=== PATIENT | female | born 1955 | race African-American/Black ===

== ENCOUNTER 2024-07-11 10:16 | Emergency (ER) | payer OTHER ==
--- OUTSIDE RECORDS SUMMARY | 2024-07-11 10:19 | XMS REPORT | Continuity of Care Document ---
Author Name Unknown Address [address] [facility] [address] [place] [address] [facility] thconnect Address [address] [facility] [address] [place] [address] Care Team Providers Care Pipeline Executive Name Role Phone [phone] Primary Care Physician Unavailab le Payers Payer Name Policy Type Policy Number Effective Date Expirati on Date Source MEDICARE PART A AND B [id number] 2012 00:00:00 [place]ICAID [place] [employer] SSI [id number] 2013 00:00:00 2015 00:00:00 Allergies, Adverse Reactions, Alerts Allergy Name Allergy Type Status Severity Reaction(s) Onset Date Inactive Date Treating Clinician Comments Source none (Not Checked) Propensi ty to adverse reaction to drug Active 06-06 00:00: 00 Justus Bell Medications Ordered Medication Name Filled Medication Name Start Date Stop Date Current Medication? Ordering Clinician Indication Dosage Frequency Signature (SIG) Comments Components Source amlodipine 10 mg tablet 07-05 00:00: 00 Yes 1mg Justus Bell lisinopril 40 mg tablet 06-06 00:00: 00 Yes 1mg Justus Bell albuterol sulfate HFA 90 mcg/actuati on aerosol inhaler 06-06 00:00: 00 Yes 1mcg/ac tuation Justus Bell atorvastati n 10 mg tablet 06-06 00:00: 00 Yes 1mg Justus Bell Mucinex DM 30 mg-600 mg tablet,exte nded release 12 hr 3-27 00:00: 00 Yes 1mg Justus Bell AZITHROMYCI N 250 MG TABS 01-24 00:00: 00 Yes Justus Bell TAKE 1 TABLET DAILY. 2022-10 2-15 00:00: 00 Yes 10 Justus Bell TAKE 1 TABLET BY MOUTH EVERY 6 TO 8 HOURS NEEDED FOR PAIN 2022-10-08 00:00: 00 Yes Justus Bell AMOXICILLIN 500 MG 2022-10 1-08 00:00: 00 Yes Justus Bell USE DIRECTED 2022-10 0-02 00:00: 00 Yes Justus Bell RINSE WITH 15 ML BY MOUTH TWICE DAILY FOR 45 SECONDS, DO NOT SWALLOW OR EAT FOR UP TO 1 HOUR 9-06 00:00: 00 Yes Justus Bell IBUPROFEN 800 MG TABS 8-16 00:00: 00 Yes Justus Bell AMOXICILLIN 500 MG 8-16 00:00: 00 Yes Justus Bell AMOXICILLIN 500 MG 8-10 00:00: 00 Yes Justus Bell IBUPROFEN 800 MG TABS 8-10 00:00: 00 Yes Justus Bell SWISH AND SWALLOW 5ML 4 TIMES DAILY. -09 00:00: 00 03-08 00:00 :00 No [id number] Justus Bell PUT ALL OVER BODY AFTER BATH 01-28 00:00: 00 Yes Justus Bell NYSTATIN [id number] UNIT/GM CREA 01-28 00:00: 00 Yes Justus Bell FLUTICASONE PROPIONATE 50 MCG/ACT SUSP 01-28 00:00: 00 Yes Justus Bell TAKE 1 TABLET BY MOUTH EVERY DAY IN THE EVENING 01-28 00:00: 00 Yes Justus Bell INHALE 2 PUFFS BY MOUTH TWICE A DAY *RINSE MOUTH AFTER EACH USE* 01-28 00:00: 00 Yes Justus Bell INHALE 1 PUFF BY MOUTH EVERY 4 HOURS 01-28 00:00: 00 Yes Justus Bell TAKE 1 TABLET BY MOUTH EVERY DAY WITH FOOD 01-28 00:00: 00 Yes Justus Bell FAMOTIDINE 20 MG TABS -31 00:00: 00 Yes Justus Bell TAKE 1 TABLET BY MOUTH TWICE A DAY 2-14 00:00: 00 Yes Justus Bell Vital Signs Vital Name Observation Time Observation Value Comments S annmarie BP Systolic 2024-06-06 10:24:00 136 mm[Hg] Step hen F Ray BP Diastolic 2024-06-06 10:24:00 78 mm[Hg] [place] phen F Ray Weight Measured 2024-06-06 10:24:00 218.00 pounds Justus F Ray Height Measured 2024-06-06 10:24:00 63.00 inches Justus F Ray Body Temperature 2024-06-06 10:24:00 97.80 degrees Justus F Ray Heart Rate 2024-06-06 10:24:00 66.00 /min Aida en F Ray Respiratory Rate 2024-06-06 10:24:00 18.00 /min Justus F Ray BP Systolic 2024-01-23 10:06:00 132 mm[Hg] Step hen F Ray BP Diastolic 2024-01-23 10:06:00 84 mm[Hg] [place] phen F Ray Weight Measured 2024-01-23 10:06:00 207.00 pounds Justus F Ray Height Measured 2024-01-23 10:06:00 63.00 inches Justus F Ray Body Temperature 2024-01-23 10:06:00 98.10 degrees Justus F Ray Heart Rate 2024-01-23 10:06:00 95.00 /min Aida en F Ray Respiratory Rate 2024-01-23 10:06:00 16.00 /min Justus F Ray Height Measured 2023-10-04 11:11:00 63.00 inches Justus F Ray Body Temperature 2023-10-04 11:11:00 97.90 degrees Justus F Ray Heart Rate 2023-10-04 11:11:00 80.00 /min Aida en F Ray Respiratory Rate 2023-10-04 11:11:00 20.00 /min Justus F Ray BP Systolic 2023-10-04 11:11:00 140 mm[Hg] Step hen F Ray BP Diastolic 2023-10-04 11:11:00 90 mm[Hg] [place] phen F Ray Weight Measured 2023-10-04 11:11:00 211.00 pounds Justus F Ray BP Systolic 2023-10-04 10:11:00 140 mm[Hg] Step hen F Ray BP Diastolic 2023-10-04 10:11:00 90 mm[Hg] [place] phen F Ray Weight Measured 2023-10-04 10:11:00 211.00 pounds Justus F Ray Height Measured 2023-10-04 10:11:00 63.00 inches Justus F Ray Body Temperature 2023-10-04 10:11:00 97.90 degrees Justus F Ray Heart Rate 2023-10-04 10:11:00 80.00 /min Aida en F Ray Respiratory Rate 2023-10-04 10:11:00 20.00 /min Justus F Ray BP Systolic 2023-08-17 10:23:00 132 mm[Hg] Step hen F Ray BP Diastolic 2023-08-17 10:23:00 80 mm[Hg] [place] phen F Ray Weight Measured 2023-08-17 10:23:00 206.00 pounds Justus F Ray Height Measured 2023-08-17 10:23:00 63.00 inches Justus F Ray Body Temperature 2023-08-17 10:23:00 98.20 degrees Justus F Ray Heart Rate 2023-08-17 10:23:00 83.00 /min Aida en F Ray Respiratory Rate 2023-08-17 10:23:00 20.00 /min Justus F Ray BP Systolic 2023-05-18 13:15:00 160 mm[Hg] Step hen F Ray BP Diastolic 2023-05-18 13:15:00 76 mm[Hg] [place] phen F Ray Weight Measured 2023-05-18 13:15:00 203.00 pounds Justus F Ray Height Measured 2023-05-18 13:15:00 63.00 inches Justus F Ray Body Temperature 2023-05-18 13:15:00 97.20 degrees Justus F Ray Heart Rate 2023-05-18 13:15:00 77.00 /min Aida en F Ray Respiratory Rate 2023-05-18 13:15:00 20.00 /min Justus F Ray BP Systolic 2023-03-08 13:33:00 138 mm[Hg] Step hen F Ray BP Diastolic 2023-03-08 13:33:00 70 mm[Hg] [place] phen F Ray Weight Measured 2023-03-08 13:33:00 200.00 pounds Justus F Ray Height Measured 2023-03-08 13:33:00 63.00 inches Justus Bell Body Temperature 2023-03-08 13:33:00 97.00 degrees Justus Bell Heart Rate 2023-03-08 13:33:00 80.00 /min Aida Bell Respiratory Rate 2023-03-08 13:33:00 20.00 /min Justus Bell Encounters Start Date/Time End Date/Time Encounter Type Admission Type Attending [facility] Care Department Encounter ID Source 2022-03-26 12:09:00 Outpatient STLMLC STLMLC [id number] [facility] 2021-12-03 18:08:53 Outpatient MDA MDA [id number] MD Real colbert 2021-11-25 14:33:53 Outpatient STLMLC STLC [id number] [facility] 2024-07-09 08:42:15 2024-07-09 08:42:15 Outpatient SFA SFA [id number] Justus Bell 2024-07-05 00:00:00 2024-07-05 00:00:00 Outpatient Visit SFA [id number] Justus Bell 2024-06-18 10:16:50 2024-06-18 10:16:50 Outpatient SFA SFA [id number] Justus Bell 2024-06-15 12:58:48 2024-06-15 12:58:48 Outpatient SFA SFA [id number] Justus Bell 2024-06-12 09:38:21 2024-06-12 09:38:21 Outpatient SFA SFA [id number] Justus Bell 2024-06-12 00:00:00 2024-06-12 00:00:00 Outpatient Visit SFA SFA [id number] Justus Bell 2024-06-06 10:23:36 2024-06-06 10:23:36 Outpatient SFA SFA [id number] Jutsus Bell 2024-06-06 00:00:00 2024-06-06 00:00:00 Outpatient Visit [facility] [id number] Justus Bell 2024-01-23 10:05:40 2024-01-23 10:05:40 Outpatient SFA [facility] [id number] Justus Bell 2023-10-05 17:17:36 2023-10-05 17:17:36 Outpatient SFA [facility] [id number] Justus Bell 2023-10-04 09:57:43 2023-10-04 09:57:43 Outpatient SFA [facility] [id number] Justus Bell 2023-08-17 10:23:34 2023-08-17 10:23:34 Outpatient SFA [facility] [id number] Justus Bell 2023-05-18 13:05:05 2023-05-18 13:05:05 Outpatient SFA [facility] [id number] Justus Bell Results Test Description Test Time Test Comments Results Result Co mments Source Justus BellLIPID [id number] 00:00:00* Test Item Value Reference Range Interpretation Comme nts CHOLESTEROL (test code = 2210) 214 MG/DL TRIGLYCERIDES (test code = 2232) 137 MG/DL HDL CHOLESTEROL (test code = 2220) 50 MG/DL CALC LDL CHOL (test code = 2237) 138 MG/DL RISK RATIO LDL/HDL (test cod e = 2238) 2.76 RATIO Justus [id number] 00:00:00* Test Item Value Reference Range Interpretation Comme nts TSH, THIRD GENERATION (test code = 2821) 1.110 UIU/ML Justus BellCOMPREHENSIVE METABOLIC [id number] 00:00:00* Test Item Value Reference Range Interpretation Comme nts GLUCOSE (test code = 2217) 90 MG/DL BUN (test code = 2208) 15 MG/DL CREATININE (test code = 2214) 0.97 MG/DL eGFR (2020 CKD-EPI) (test co de = 70694) 64 ML/MIN/1.73 CALC BUN/CREAT (test code = 2235) 15 RATIO SODIUM (test code = 2231) 142 MEQ/L POTASSIUM (test code = 2228) 4.3 MEQ/L CHLORIDE (test code = 2215) 106 MEQ/L CARBON DIOXIDE (test code = 2206) 24 MEQ/L CALCIUM (test code = 2209) 9.5 MG/DL PROTEIN, TOTAL (test code = 2229) 7.5 G/DL ALBUMIN (test code = 2201) 4.1 G/DL CALC GLOBULIN (test code = 2240) 3.4 G/DL CALC A/G RATIO (test code = 2234) 1.2 RATIO BILIRUBIN, TOTAL (test code = 2207) 0.7 MG/DL ALKALINE PHOSPHATASE (test code = 2204) 134 U/L AST (test code = 2218) 21 U/L ALT (test code = 2219) 11 U/L Justus BellHEPATITIS C [id number] 00:00:00* Test Item Value Reference Range Interpretation Comme nts HEPATITIS C ANTIBODY (test c ode = 4675) NON-REACTIVE Justus Bell8 [ADDED]2023-10-13 00:00:00* Test Item Value Reference Range Interpretation Comme nts NO URINE PROVIDED: (test code = 986) (NOTE) Justus BellCBC W/AUTO [id number] 00:00:00* Test Item Value Reference Range Interpretation Comme nts WBC (test code = 1001) 7.7 K/UL RBC (test code = 1002) 4.73 M/UL HEMOGLOBIN (test code = 1003) 14.3 G/DL HEMATOCRIT (test code = 1004) 42.7 % MCV (test code = 1005) 90.3 fL MCH (test code = 1006) 30.2 PG MCHC (test code = 1007) 33.5 G/DL RDW (test code = 1038) 13.1 % NEUTROPHILS (test code = 1008) 41.4 % LYMPHOCYTES (test code = 1010) 49.4 % MONOCYTES (test code = 1011) 6.2 % EOSINOPHILS (test code = 1012) 1.9 % BASOPHILS (test code = 1013) 0.8 % IMMATURE GRANULOCYTES (test code = 1036) 0.3 % NUCLEATED RBCS (test code = 1065) 0.0 /100WBC'S PLATELET COUNT (test code = 1015) 179 K/UL ABSOLUTE NEUTROPHILS (test c ode = 1066) 3.19 K/UL ABSOLUTE LYMPHOCYTES (test c ode = 1067) 3.80 K/UL ABSOLUTE MONOCYTES (test cod e = 1068) 0.48 K/UL ABSOLUTE EOSINOPHILS (test c ode = 1040) 0.15 K/UL ABSOLUTE BASOPHILS (test cod e = 1069) 0.06 K/UL ABS IMMATURE GRANULOCYTES (t est code = 1020) 0.02 K/UL ABS NUCLEATED RBCS (test cod e = 90603) 0.00 K/UL Justus BellLIPID [id number] 00:00:00* Test Item Value Reference Range Interpretation Comme nts CHOLESTEROL (test code = 2210) 214 MG/DL TRIGLYCERIDES (test code = 2232) 137 MG/DL HDL CHOLESTEROL (test code = 2220) 50 MG/DL CALC LDL CHOL (test code = 2237) 138 MG/DL RISK RATIO LDL/HDL (test cod e = 2238) 2.76 RATIO Justus [id number] 00:00:00* Test Item Value Reference Range Interpretation Comme nts TSH, THIRD GENERATION (test code = 2821) 1.110 UIU/ML Justus BellCOMPREHENSIVE METABOLIC [id number] 00:00:00* Test Item Value Reference Range Interpretation Comme nts GLUCOSE (test code = 2217) 90 MG/DL BUN (test code = 2208) 15 MG/DL CREATININE (test code = 2214) 0.97 MG/DL eGFR (2020 CKD-EPI) (test co de = 56484) 64 ML/MIN/1.73 CALC BUN/CREAT (test code = 2235) 15 RATIO SODIUM (test code = 2231) 142 MEQ/L POTASSIUM (test code = 2228) 4.3 MEQ/L CHLORIDE (test code = 2215) 106 MEQ/L CARBON DIOXIDE (test code = 2206) 24 MEQ/L CALCIUM (test code = 2209) 9.5 MG/DL PROTEIN, TOTAL (test code = 2229) 7.5 G/DL ALBUMIN (test code = 2201) 4.1 G/DL CALC GLOBULIN (test code = 2240) 3.4 G/DL CALC A/G RATIO (test code = 2234) 1.2 RATIO BILIRUBIN, TOTAL (test code = 2207) 0.7 MG/DL ALKALINE PHOSPHATASE (test code = 2204) 134 U/L AST (test code = 2218) 21 U/L ALT (test code = 2219) 11 U/L Justus BellHEPATITIS C [id number] 00:00:00* Test Item Value Reference Range Interpretation Comme nts HEPATITIS C ANTIBODY (test c ode = 4675) NON-REACTIVE Justus Bell8 [ADDED]2023-10-13 00:00:00* Test Item Value Reference Range Interpretation Comme nts NO URINE PROVIDED: (test code = 986) (NOTE) Justus BellCBC W/AUTO [id number] 00:00:00* Test Item Value Reference Range Interpretation Comme nts WBC (test code = 1001) 7.7 K/UL RBC (test code = 1002) 4.73 M/UL HEMOGLOBIN (test code = 1003) 14.3 G/DL HEMATOCRIT (test code = 1004) 42.7 % MCV (test code = 1005) 90.3 fL MCH (test code = 1006) 30.2 PG MCHC (test code = 1007) 33.5 G/DL RDW (test code = 1038) 13.1 % NEUTROPHILS (test code = 1008) 41.4 % LYMPHOCYTES (test code = 1010) 49.4 % MONOCYTES (test code = 1011) 6.2 % EOSINOPHILS (test code = 1012) 1.9 % BASOPHILS (test code = 1013) 0.8 % IMMATURE GRANULOCYTES (test code = 1036) 0.3 % NUCLEATED RBCS (test code = 1065) 0.0 /100WBC'S PLATELET COUNT (test code = 1015) 179 K/UL ABSOLUTE NEUTROPHILS (test c ode = 1066) 3.19 K/UL ABSOLUTE LYMPHOCYTES (test c ode = 1067) 3.80 K/UL ABSOLUTE MONOCYTES (test cod e = 1068) 0.48 K/UL ABSOLUTE EOSINOPHILS (test c ode = 1040) 0.15 K/UL ABSOLUTE BASOPHILS (test cod e = 1069) 0.06 K/UL ABS IMMATURE GRANULOCYTES (t est code = 1020) 0.02 K/UL ABS NUCLEATED RBCS (test cod e = 72202) 0.00 K/UL Justus BellLIPID [id number] 00:00:00* Test Item Value Reference Range Interpretation Comme nts CHOLESTEROL (test code = 2210) 214 MG/DL TRIGLYCERIDES (test code = 2232) 137 MG/DL HDL CHOLESTEROL (test code = 2220) 50 MG/DL CALC LDL CHOL (test code = 2237) 138 MG/DL RISK RATIO LDL/HDL (test cod e = 2238) 2.76 RATIO Justus [id number] 00:00:00* Test Item Value Reference Range Interpretation Comme nts TSH, THIRD GENERATION (test code = 2821) 1.110 UIU/ML Justus BellCOMPREHENSIVE METABOLIC [id number] 00:00:00* Test Item Value Reference Range Interpretation Comme nts GLUCOSE (test code = 2217) 90 MG/DL BUN (test code = 2208) 15 MG/DL CREATININE (test code = 2214) 0.97 MG/DL eGFR (2020 CKD-EPI) (test co de = 21699) 64 ML/MIN/1.73 CALC BUN/CREAT (test code = 2235) 15 RATIO SODIUM (test code = 2231) 142 MEQ/L POTASSIUM (test code = 2228) 4.3 MEQ/L CHLORIDE (test code = 2215) 106 MEQ/L CARBON DIOXIDE (test code = 2206) 24 MEQ/L CALCIUM (test code = 2209) 9.5 MG/DL PROTEIN, TOTAL (test code = 2229) 7.5 G/DL ALBUMIN (test code = 2201) 4.1 G/DL CALC GLOBULIN (test code = 2240) 3.4 G/DL CALC A/G RATIO (test code = 2234) 1.2 RATIO BILIRUBIN, TOTAL (test code = 2207) 0.7 MG/DL ALKALINE PHOSPHATASE (test code = 2204) 134 U/L AST (test code = 2218) 21 U/L ALT (test code = 2219) 11 U/L Justus BellHEPATITIS C [id number] 00:00:00* Test Item Value Reference Range Interpretation Comme nts HEPATITIS C ANTIBODY (test c ode = 4675) NON-REACTIVE Justus Little [ADDED]2023-10-13 00:00:00* Test Item Value Reference Range Interpretation Comme nts NO URINE PROVIDED: (test code = 986) (NOTE) Justus Bell Notes Date/Time Note Provider Source [facility]2024-08-13 00:00:00 [facility]2024-08-07 00:00:00 Justus Koenig [facility]
--- NOTE | 2024-07-11 10:53 | RAD REPORT ---
EXAM DESCRIPTION: RAD - Chest Single View - 07/11/2024 10:46 am CLINICAL HISTORY: COUGH Chest pain. COMPARISON: Chest Pa And Lat (2 Views) dated 09/26/2019; CHEST PA AND LAT 2 VIEW dated 02/11/2014; CH EST SINGLE VIEW dated 01/30/2014; CHEST SINGLE VIEW dated 01/29/2014 FINDINGS: Portable technique limits examination quality. The lungs are grossly clear. Mild elevation left hemidiaphragm noted. Significant fullness is seen in the right hilar region this is nonspecific but may indicate a mass or prominent vasculature. CT woul d be recommended. The heart is upper limit normal in size.Surgical clips seen in the left axillary re gion. IMPRESSION: Soft tissue lesion is identified in the right hilum which could be mass or prominent ves tj. Recommend CT chest for further evaluation.
[2024-07-11 11:57] LABS: Absolute Basophils 0.1 K/uL (0-0.5); Absolute Eosinophils 0.2 K/uL (0-0.5); Absolute Lymphocytes (CBC) 2.6 K/uL (0.7-4.9); Absolute Monocytes 0.6 K/uL (0.1-1.3); Absolute Neutrophil 4.1 K/uL (1.8-8.0); Basophils % 0.9 % (0-1.3); Hemoglobin 13.1 g/dL (12.0-15.0); Lymphocytes % 34.7 % (15.3-44.8); MCH 29.2 pg (27.0-35.0); MCHC 32.9 g/dL (32.0-36.0); MCV 88.8 fL (80-100); Monocytes % 7.4 % (3.3-12.3); Platelets 161 thou/uL (152-406); Red Cell Distribution Width 14.1 % (12.1-15.2)
[2024-07-11 12:03] LABS: PT Prothrombin Time 12.3 SECONDS (9.4-12.5); Protime INR 1.1
[2024-07-11 12:05] LABS: Albumin 3.4 g/dL (3.4-5.0); Albumin/Globulin Ratio 0.8 (1.1-1.8); Anion Gap 8.7 mEq/L (5.0-15.0); Bilirubin Direct 0.2 mg/dL (0-0.2); Bilirubin Indirect, Calculated 0.6 mg/dL (0.2-0.8); Bilirubin Total 0.8 mg/dL (0.2-1.0); Globulin 4.2 g/dL (2.3-3.5); Magnesium 1.9 mg/dL (1.6-2.4); Potassium 3.7 mEq/L (3.5-5.1); Protein, Total 7.6 g/dL (6.4-8.2); Troponin High Sensitivity 52.7 pg/mL (<58.9)
[2024-07-11] MEDS ORDERED: hydroCHLOROthiazide 25 MG TAB ONE (13:34)
[2024-07-11] MEDS ORDERED: ASPIRIN 81 MG CHEWABLE TABLET ONE (13:34)
[2024-07-11] MEDS ORDERED: AMLODIPINE 10 MG TAB ONE (13:34)
--- NOTE | 2024-07-11 13:45 | RAD REPORT ---
EXAM DESCRIPTION: CT - Thorax W/ Con - 07/11/2024 1:30 pm CLINICAL HISTORY: Lung mass COMPARISON: July 11, 2024 chest x-ray TECHNIQUE: Computed axial tomography of the chest was obtained. 100 cc Isovue 300 was administered i ntravenously. All CT scans are performed using dose optimization technique as appropriate and may include automated exposure control or mA/KV adjustment according to patient size. FINDINGS: Mild left upper lobe opacities are without significant change from 2014 CT chest and are c hronic. No mass/infiltrate is present in the parahilar region right lung Remainder of the lungs are clear No mediastinal or hilar lymphadenopathy is seen. A pleural effusion is not present. A pericardial effusion is not seen. Probable 2.4 centimeter right thyroid nodule IMPRESSION: Probable 2.4 centimeter right thyroid nodule. Nonemergent thyroid ultrasound recommended No acute abnormality involving chest is seen
--- NOTE | 2024-07-11 14:03 | ER ---
Nurse's Notes [facility] Name: Bria Myers Age: 69 yrs Sex: Female : 1955 Arrival Date: 07/11/2024 Time: 10:16 Bed 10 Private MD: Diagnosis: Essential (primary) hypertension Presentation: 07/11 10:51 Chief complaint: Patient states: her BP has been high X 2 months, takes lisinopril iw every morning , her home health nurse told her to come to ER for BP over 180 systolic. Coronavirus screen: At this time, the client does not indicate any symptoms associated with coronavirus-19. Ebola Screen: No symptoms or risks identified at this time. Risk Assessment: Do you want to hurt yourself or someone else? Patient reports no desire to harm self or others. Onset of symptoms was July 11, 2024. 10:51 Method Of Arrival: Ambulatory iw 10:51 Acuity: FLIP 3 iw 10:54 Initial Sepsis Screen: Does the patient meet any 2 criteria? No. Patient's initial iw sepsis screen is negative. Does the patient have a suspected source of infection? No. Patient's initial sepsis screen is negative. Historical: - Allergies: 10:52 No Known Allergies; iw - PMHx: 10:52 Hypertensive disorder; iw - PSHx: 10:52 hysterectomy; iw - Immunization history:: Adult Immunizations up to date. - Infectious Disease History:: Denies. - Social history:: Smoking status: Patient denies any tobacco usage or history of. Screenin:40 Abuse screen: Denies threats or abuse. Nutritional screening: No deficits noted. ap3 Tuberculosis screening: No symptoms or risk factors identified. 12:49 [facility] ED Fall Risk Assessment (Adult) History of falling in the last 3 months, ap3 including since admission Yes- fall prone (multiple falls) (3 pts) Confusion or Disorientation No (0 pts) Intoxicated or Sedated No (0 pts) Impaired Gait Yes (1 pt) Mobility Assist Device Used Yes (1 pt) Altered Elimination No (0 pt) Score/Fall Risk Level 3 or more points = High Risk Oriented to surroundings, Maintained a safe environment, Educated pt \T\ family on fall prevention, incl call for assistance when getting out of bed, Assessed \T\ reinforced patient's understanding of fall precautions, Hourly rounding (assess needs \T\ fall precautionary measures) done, Used ambulatory aids as needed (educated on \T\ assisted with), Used gait belt as appropriate Implemented a Fall Risk Plan of Care, Apply high fall risk patient identification: yellow non skid footwear/ fall signage, Remained w/in arm's length of patient and in sight while toileting, Offered frequent toileting (1:1 observation), Remained with patient while ambulating, Utilized family, sitter, or virtual purchasing associate as indicated. Assessment: 12:39 General: Appears in no apparent distress. Behavior is calm, cooperative, appropriate ap3 for age. Pain: Denies pain. Neuro: Level of Consciousness is awake, alert, obeys commands, Oriented to person, place, time, situation. Cardiovascular: Patient's skin is warm and dry. Respiratory: Airway is patent Respiratory effort is even, unlabored, Respiratory pattern is regular, symmetrical. 13:56 Reassessment: Patient and/or family updated on plan of care and expected duration. Pain ap3 level reassessed. Patient is alert, oriented x 3, equal unlabored respirations, skin warm/dry/pink. 15:08 Reassessment: Patient appears in no apparent distress at this time. No changes from ll1 previously documented assessment. Patient and/or family updated on plan of care and expected duration. Pain level reassessed. Patient is alert, oriented x 3, equal unlabored respirations, skin warm/dry/pink. Patient states feeling better. Vital Signs: 10:51 BP 162 / 106; Pulse 91; Resp 16; Temp 97.3; Pulse Ox 99% on R/A; iw 13:54 BP 177 / 71; ap3 15:07 BP 162 / 73; Pulse 80; Resp 16; Pulse Ox 99% ; Pain 0/10; ll1 15:07 Pain Scale: Adult ll1 ED Course: 10:18 Patient arrived in ED. mr 10:30 Kale Oden MD is Attending Physician. norm 10:47 XRAY Chest (1 view) In Process Unspecified. EDMS 10:52 Triage completed. iw 10:54 Arm band placed on. iw 11:44 Basic Metabolic Panel Sent. bc6 11:44 CBC with Diff Sent. bc6 11:44 Magnesium Sent. bc6 11:44 LFT's Sent. bc6 11:44 NT PRO-BNP Sent. bc6 11:44 PT-INR Sent. bc6 11:44 Troponin HS Sent. bc6 11:44 Inserted saline lock: 24 gauge in right forearm, using aseptic technique. Flushed with bc6 10 mL NS. 11:45 Initial lab(s) drawn, by me, sent to lab. bc6 12:09 Patient placed in an exam room, on a stretcher. ll1 12:38 EKG done, by ED staff, reviewed by Kale Oden MD. ap3 12:49 Patient has correct armband on for positive identification. Bed in low position. Call ap3 light in reach. Side rails up X 1. Adult w/ patient. Provided Education on: call light education. Client placed on continuous cardiac and pulse oximetry monitoring. NIBP monitoring applied. school bus monitor on. Pulse ox on. NIBP on. 13:32 Thorax W/ Con In Process Unspecified. EDME 14:02 Trino Raygoza MD is Referral Physician. [facility] 14:25 EKG done, by ED staff, reviewed by Kale Oden MD. ap3 15:08 No provider procedures requiring assistance completed. IV discontinued, intact, ll1 bleeding controlled, No redness/swelling at site. Pressure dressing applied. Administered Medications: 13:16 Drug: Aspirin PO 162 mg PO once Route: PO; ap3 15:08 Follow up: Response: No adverse reaction ll1 13:54 Drug: Norvasc PO 10 mg PO once Route: PO; ap3 15:09 Follow up: Response: No adverse reaction; Blood pressure is lowered ll1 13:54 Drug: Hydrochlorothiazide PO 12.5 mg PO once Route: PO; ap3 15:08 Follow up: Response: No adverse reaction ll1 Medication: 12:50 VIS not applicable for this client. ap3 Outcome: 14:02 Discharge ordered by . [facility] 15:08 Discharged to home ambulatory, ll1 15:08 Condition: stable 15:08 Discharge instructions given to patient, family, Instructed on discharge instructions, follow up and referral plans. medication usage, Demonstrated understanding of instructions, follow-up care, medications, Prescriptions given X 4, 15:09 Patient left the ED. ll1 Signatures: Dispatcher [employer] EDME Kale Oden MD MD cha Rivera, Mary, Reg Reg mr Ute Quinonez RN RN iw Prokisch, Amanda, RN RN ap3 Toshia Cueto RN RN ll1 Virginia Rashid 6 Corrections: (The following items were deleted from the chart) 10:53 10:52 PMHx: low sugar; iw iw
--- NOTE | 2024-07-11 14:03 | EDPHYS ---
Physician Documentation [facility] Name: Bria Myers Age: 69 yrs Sex: Female : 1955 Arrival Date: 07/11/2024 Time: 10:16 Bed 10 Private MD: ED Physician Kale Oden HPI: 07/11 13:10 This 69 yrs old Black Female presents to ER via Ambulatory with complaints of High norm Blood Pressure. 13:10 The patient has elevated blood pressure and discovered this at home, with a home norm device. Onset: The symptoms/episode began/occurred 3 day(s) ago. Modifying factors: The symptoms are aggravated by activity, The symptoms are alleviated by remaining still. Associated signs and symptoms: The patient has no apparent associated signs or symptoms. Severity of symptoms: At its worst the blood pressure was moderate, in the emergency department the blood pressure is unchanged. The patient has experienced similar episodes in the past, several times. Historical: - Allergies: 10:52 No Known Allergies; iw - PMHx: 10:52 Hypertensive disorder; iw - PSHx: 10:52 hysterectomy; iw - Immunization history:: Adult Immunizations up to date. - Infectious Disease History:: Denies. - Social history:: Smoking status: Patient denies any tobacco usage or history of. ROS: 13:10 Constitutional: Negative for fever, chills, and weight loss, Eyes: Negative for injury, norm pain, redness, and discharge, ENT: Negative for injury, pain, and discharge, Neck: Negative for injury, pain, and swelling, Cardiovascular: Negative for chest pain, palpitations, and edema, Respiratory: Negative for shortness of breath, cough, wheezing, and pleuritic chest pain, Abdomen/GI: Negative for abdominal pain, nausea, vomiting, diarrhea, and constipation, Back: Negative for injury and pain, : Negative for injury, bleeding, discharge, and swelling, MS/Extremity: Negative for injury and deformity, Skin: Negative for injury, rash, and discoloration, Neuro: Negative for headache, weakness, numbness, tingling, and seizure, Psych: Negative for depression, anxiety, suicide ideation, homicidal ideation, and hallucinations, Allergy/Immunology: Negative for hives, rash, and allergies, Endocrine: Negative for neck swelling, polydipsia, polyuria, polyphagia, and marked weight changes, Hematologic/Lymphatic: Negative for swollen nodes, abnormal bleeding, and unusual bruising, Exam: 13:10 Constitutional: This is a well developed, well nourished patient who is awake, alert, norm and in no acute distress. Head/Face: Normocephalic, atraumatic. Eyes: Pupils equal round and reactive to light, extra-ocular motions intact. Lids and lashes normal. Conjunctiva and sclera are non-icteric and not injected. Cornea within normal limits. Periorbital areas with no swelling, redness, or edema. ENT: Nares patent. No nasal discharge, no septal abnormalities noted. Tympanic membranes are normal and external auditory canals are clear. Oropharynx with no redness, swelling, or masses, exudates, or evidence of obstruction, uvula midline. Mucous membranes moist. Neck: Trachea midline, no thyromegaly or masses palpated, and no cervical lymphadenopathy. Supple, full range of motion without nuchal rigidity, or vertebral point tenderness. No Meningismus. Chest/axilla: Normal chest wall appearance and motion. Nontender with no deformity. No lesions are appreciated. Cardiovascular: Regular rate and rhythm with a normal S1 and S2. No gallops, murmurs, or rubs. Normal PMI, no JVD. No pulse deficits. Respiratory: Lungs have equal breath sounds bilaterally, clear to auscultation and percussion. No rales, rhonchi or wheezes noted. No increased work of breathing, no retractions or nasal flaring. Abdomen/GI: Soft, non-tender, with normal bowel sounds. No distension or tympany. No guarding or rebound. No evidence of tenderness throughout. Back: No spinal tenderness. No costovertebral tenderness. Full range of motion. Skin: Warm, dry with normal turgor. Normal color with no rashes, no lesions, and no evidence of cellulitis. MS/ Extremity: Pulses equal, no cyanosis. Neurovascular intact. Full, normal range of motion. Neuro: Awake and alert, GCS 15, oriented to person, place, time, and situation. Cranial nerves II-XII grossly intact. Motor strength 5/5 in all extremities. Sensory grossly intact. Cerebellar exam normal. Normal gait. Psych: Awake, alert, with orientation to person, place and time. Behavior, mood, and affect are within normal limits. 13:10 ECG was reviewed by the Attending Physician. 14:31 ECG was reviewed by the Attending Physician. [facility] Vital Signs: 10:51 BP 162 / 106; Pulse 91; Resp 16; Temp 97.3; Pulse Ox 99% on R/A; iw 13:54 BP 177 / 71; ap3 15:07 BP 162 / 73; Pulse 80; Resp 16; Pulse Ox 99% ; Pain 0/10; ll1 15:07 Pain Scale: Adult ll1 MDM: 10:59 Patient medically screened. [facility] 13:12 Differential diagnosis: hypertensive crisis, Malignant HTN. Data reviewed: vital signs, [facility] nurses notes, lab test result(s), EKG, radiologic studies. Consideration of Admission/Observation Escalation of care including admission/observation considered. I considered the following discharge prescriptions or medication management in the emergency department Medications were administered in the Emergency Department. See MAR. Independent interpretation of the following test(s) in the Emergency Department EKG: See my EKG interpretation above. Test considered but Not performed: Ultrasound NO 2 D ECHO. Care significantly affected by the following chronic conditions: Hypertension, Obesity. 07/11 10:30 Order name: Basic Metabolic Panel; Complete Time: 13:05 [facility] 07/11 10:30 Order name: CBC with Diff; Complete Time: 13:05 [facility] 07/11 10:30 Order name: LFT's; Complete Time: 13:05 [facility] 07/11 10:30 Order name: Magnesium; Complete Time: 13:05 [facility] 07/11 10:30 Order name: NT PRO-BNP; Complete Time: 13:05 [facility] 07/11 10:30 Order name: PT-INR; Complete Time: 13:05 [facility] 07/11 10:30 Order name: Troponin HS; Complete Time: 13:05 [facility] 07/11 13:07 Order name: Troponin High Sensitivity: 110PM; Complete Time: 14:53 [facility] 07/11 13:07 Order name: Troponin HS bd 07/11 10:30 Order name: XRAY Chest (1 view); Complete Time: 13:05 [facility] 07/11 13:27 Order name: Thorax W/ Con; Complete Time: 14:01 EDMS 07/11 10:30 Order name: EKG; Complete Time: 10:31 [facility] 07/11 13:10 Order name: EKG; Complete Time: 13:10 [facility] 07/11 10:30 Order name: Cardiac monitoring; Complete Time: 12:38 [facility] 07/11 10:30 Order name: EKG - Nurse/Tech; Complete Time: 12:38 [facility] 07/11 10:30 Order name: IV Saline Lock; Complete Time: 11:44 norm 07/11 10:30 Order name: Labs collected and sent; Complete Time: 11:44 norm 07/11 10:30 Order name: O2 Per Protocol; Complete Time: 12:20 norm 07/11 10:30 Order name: O2 Sat Monitoring; Complete Time: 12:20 norm 07/11 11:51 Order name: Labs - recollect needed: recollect lavender top; Complete Time: 11:54 07/11 13:10 Order name: EKG - Nurse/Tech; Complete Time: 13:16 norm EC:10 Rate is 70 beats/min. Rhythm is regular. QRS [place] is Normal. [place] interval is normal. QRS norm interval is normal. QT interval is normal. No Q waves. T waves are Normal. No ST changes noted. Clinical impression: NSR w/ Non-specific ST/T Changes and No evidence of ischemia. Interpreted by me. Reviewed by me. 14:31 Rate is 68 beats/min. Rhythm is regular. QRS [place] is Normal. [place] interval is normal. QRS norm interval is normal. QT interval is normal. No Q waves. T waves are Normal. No ST changes noted. Clinical impression: NSR w/ Non-specific ST/T Changes and No evidence of ischemia. Interpreted by me. Reviewed by me. Administered Medications: 13:16 Drug: Aspirin PO 162 mg PO once Route: PO; ap3 15:08 Follow up: Response: No adverse reaction ll1 13:54 Drug: Norvasc PO 10 mg PO once Route: PO; ap3 15:09 Follow up: Response: No adverse reaction; Blood pressure is lowered ll1 13:54 Drug: Hydrochlorothiazide PO 12.5 mg PO once Route: PO; ap3 15:08 Follow up: Response: No adverse reaction ll1 Disposition Summary: 07/11/24 14:02 Discharge Ordered Notes: Location: Home norm Problem: new norm Symptoms: have improved norm Condition: Stable norm Diagnosis - Essential (primary) hypertension norm Followup: norm - With: Private Physician - When: 2 - 3 days - Reason: Recheck today's complaints, Continuance of care, Re-evaluation by your physician Followup: norm - With: Trino Raygoza MD - When: 2 - 3 days - Reason: Recheck today's complaints, Re-evaluation by your physician Discharge Instructions: - Discharge Summary Sheet norm - Hypertension, Adult norm - Hypertension, Adult, [id number] norm - How to Take Your Blood Pressure, Omco-jj-Pops norm - Aspirin and Your Heart norm - Managing Your Hypertension [facility] Forms: - Medication Reconciliation Form norm - Antibiotic Education norm - Prescription Opioid Use norm - Patient Portal Instructions [facility] - Leadership Thank You Letter [facility] Prescriptions: - Norvasc 10 mg Oral Tablet - take 1 tablet ORAL route once daily; 30 tablet; Refills: 0, Product Selection norm Permitted - Potassium Chloride 20 meq Oral Packet - take 1 packet ORAL route once daily 1 packet in 6 (six) ounces of water or norm juice; Take after meal; 30 packet; Refills: 0, Product Selection Permitted - Lisinopril 20 mg Oral Tablet - take 1 tablet ORAL route once daily; 20 tablet; Refills: 0, Product Selection norm Permitted - Hydrochlorothiazide 12.5 mg Oral Tablet - take 1 tablet ORAL route once daily; 30 tablet; Refills: 0, Product Selection norm Permitted Signatures: Dispatcher [employer] EDMS Rola Lamb Corey, MD MD cha Williams, Irene RN Marian Burton RN RN apToshia Mcleod RN RN ll1 Corrections: (The following items were deleted from the chart) 10:31 10:31 BASIC METABOLIC PANEL+C.LAB.BRZ ordered. EDMS EDMS 10:31 10:31 CBC+H.LAB.BRZ ordered. EDMS EDMS 10:31 10:31 HEPATIC FUNCTION+C.LAB.BRZ ordered. EDMS EDMS 10:31 10:31 MAGNESIUM+C.LAB.BRZ ordered. EDMS EDMS 10:31 10:31 PROBNP+C.LAB.BRZ ordered. EDMS EDMS 10:31 10:31 PROTIME (+INR)+COAG.LAB.BRZ ordered. EDMS EDMS 10:31 10:31 Troponin High Sensitivity+C.LAB.BRZ ordered. EDMS EDMS 10:31 10:31 Urinalysis+U.LAB.BRZ ordered. EDMS EDMS 10:53 10:52 PMHx: low sugar; iw iw 13:27 13:10 Chest For PE Angio+CT.RAD.BRZ ordered. EDMS EDMS
[2024-07-11 15:27] VITALS: TEMP 97.3; O2SAT 99
[2024-07-11 15:38] VITALS: BP 162/73
--- NOTE | 2024-07-16 13:07 | EKG ---
Test Date: 2024-07-11 Test Time: 14:23:35 Verification Rep: ALP MEASUREMENT RESULTS: Intervals: Rate: 68 [place]: 148 QRSD: 82 QT: 430 QTc: 457 [place]: P: [place]: 148 QRS: 244 T: 128 INTERPRETIVE STATEMENTS: Normal sinus rhythm Right superior axis deviation Pulmonary disease pattern Right ventricular hypertrophy T wave abnormality, consider lateral ischemia Abnormal ECG Compared to ECG 07/11/2024 12:34:16 Right superior axis now present Right ventricular hypertrophy now present T-wave abnormality now present Possible ischemia now present Sinus arrhythmia no longer present Left anterior fascicular block no longer present Left ventricular hypertrophy no longer present Electronically Signed On 07-16-24 12:52:20 CDT by Trino Raygoza
--- NOTE | 2024-07-16 13:08 | EKG ---
Test Date: 2024-07-11 Test Time: 12:34:16 Identifier Horse: ALP MEASUREMENT RESULTS: Intervals: Rate: 70 [place]: 150 QRSD: 80 QT: 416 QTc: 449 [place]: P: 44 [place]: 150 QRS: -58 T: 40 INTERPRETIVE STATEMENTS: Normal sinus rhythm with sinus arrhythmia Left anterior fascicular block Voltage criteria for left ventricular hypertrophy Abnormal ECG Compared to ECG 01/28/2014 09:35:29 Left anterior fascicular block now present Left ventricular hypertrophy now present Sinus tachycardia no longer present Left-axis deviation no longer present T-wave abnormality no longer present Possible ischemia no longer present Electronically Signed On 07-16-24 12:52:36 CDT by Trino Raygoza
== END 2024-07-11 15:09 | disposition home or self-care (01) ==
LOC: ER 10:16
DX: I10 Essential (primary) hypertension (principal)
CPT/HCPCS: 93005 ×2; 85025; 80048; 36415; 83735; 85610; 80076; 84484 ×2; 83880; 71260; 71045; 99285; Q9967